=== PATIENT | male | born 1960 | race Caucasian/White ===

== ENCOUNTER 2022-09-09 08:51 | Day surgery (SDC) | payer OTHER, SELFPAY ==
--- NOTE | 2022-09-08 13:19 | HO.ANESPROP2 ---
Documented by User: Berta Iverson NP 09/08/22 13:19 HPI - Anesthesia Eval Consult details Narrative: 62yo M for Colonoscopy [facility] Past Medical History Medical History (Updated 09/08/22 @ 12:51 by Susan Castillo RN) Broken jaw Broken leg Surgical History Surgical History (Updated 09/08/22 @ 12:51 by Susan Castillo RN) H/O colonoscopy H/O hernia repair Social History Social History Patient Tobacco Use Status: Former Tobacco user Are you DNR?: No Advance Directives: No Advance Directives Information Provided: Yes Recently lost weight without trying: No Nutrition Risks: No Nutritional Risk Meds Allergies Allergy/AdvReac Type Severity Reaction Status Date / Time No Known Allergies Allergy Verified 09/08/22 12:49 Home Medications Medication Instructions Recorded Confirmed Last Taken Type multivitamin 1 tab PO DAILY 09/09/22 09/09/22 09/09/22 History Exam Exam Date and Time: September 08, 2022 131 Assessment and Plan Assessment Anesthesia Assessment: Chart Reviewed Documented by User: Yang Cortez MD 09/12/22 14:26 [facility] Past Medical History Medical History (Updated 09/08/22 @ 12:51 by Susan Castillo RN) Broken jaw Broken leg Functional capacity: independent ambulation Family History Family history of problems with anesthesia: No Surgical History Surgical History (Updated 09/08/22 @ 12:51 by Susan Castillo RN) H/O colonoscopy H/O hernia repair History of Problems with Anesthesia: No Social History Social History Patient Tobacco Use Status: Former Tobacco user Are you DNR?: No Advance Directives: No Advance Directives Information Provided: Yes Recently lost weight without trying: No Nutrition Risks: No Nutritional Risk Meds Allergies Allergy/AdvReac Type Severity Reaction Status Date / Time No Known Allergies Allergy Verified 09/08/22 12:49 Home Medications Medication Instructions Recorded Confirmed Last Taken Type multivitamin 1 tab PO DAILY 09/09/22 09/09/22 09/09/22 History Exam Airway Mallampati Class: III TM Dist: >3cm Neck ROM: Full Loose/Missing/Broken Teeth: Yes Heart: S1,S2 Lungs: b/l breath sounds Assessment and Plan Assessment Anesthesia Assessment: Anesthesia Plan Discussed Final Anesthetic Review Family History of Problems with Anesthesia: No History of Problems with Anesthesia: No NPO: Yes ASA Class: II Final Preanesthetic Review: Meds/Allgs Chart Reviewed, Consent Obtained/Reviewed and Anes Risks/Benef Reviewed Patient Risk: Intermediate Procedure Risk: Intermediate Anesthetic Plan Anesthetic Plan: MAC: Disposition: Standard PACU
[2022-09-09 07:52] VITALS: BMI 23.3
[2022-09-09 08:53] VITALS: BP 148/74; PULSE 62; RESP 18; TEMP 36.1; O2SAT 98
[2022-09-09] MEDS: Lactated Ringers 1,000 ML 100 ML IVCONT (09:17)
--- NOTE | 2022-09-09 11:04 | PM.OP ---
Brief Operative Note Date of Service: 09/09/22 Pre-op diagnosis: Screening Post-op diagnosis: other (Polyp) Procedure: Colonoscopy to the cecum and TI with bx/removal of polyp Surgeon: Steven Tong Anesthesia: MAC Was an Heel Sprayer First used for this Procedure?: No Estimated blood loss (mL): 2.0 Pathology: other (A. Polyp at 50cm) Condition: stable Disposition: PACU
[2022-09-09 11:05] VITALS: BP 98/62; PULSE 76; RESP 20; TEMP 36.4; O2SAT 97
[2022-09-09 11:20] VITALS: BP 104/72; PULSE 52; RESP 16; TEMP 36.3; O2SAT 98
--- NOTE | 2022-09-09 12:00 | OP_ITS ---
SURGEON: Steven Tong MD INDICATIONS: The patient presents for evaluation of colorectal cancer screening and personal history of tubular adenoma of the colon. Full consent has been obtained from him for this, including risks of bleeding and perforation. PREOPERATIVE DIAGNOSIS: Colorectal cancer screening. POSTOPERATIVE DIAGNOSIS: PROCEDURE PERFORMED: Colonoscopy to the cecum and terminal ileum with biopsy and removal of polyp. ESTIMATED BLOOD LOSS: COMPLICATIONS: ANESTHESIA: Monitored anesthesia care. ASSISTANTS: SPECIMENS: POSTOPERATIVE DIAGNOSES: Colorectal cancer screening, small colon polyp, mild diverticulosis and small internal hemorrhoids. DESCRIPTION OF PROCEDURE: The patient was placed in the left lateral decubitus position. The digital rectal exam revealed no abnormalities. The Olympus video pediatric colonoscope was then entered into the rectum and advanced to the cecum. Once in the cecum, I did identify normal-appearing cecal pouch with appendiceal orifice and normal-appearing ileocecal valve. The terminal ileum was cannulated and appeared normal. The scope was withdrawn back in the colon. The entire cecum and the ileocecal valve appeared normal. The scope was then slowly withdrawn assessing all mucosal surfaces carefully. Preparation was excellent. At 50 cm, there was a flat approximately 3 or 4 mm polyp which was biopsied and completely removed with a cold biopsy forceps. I did not visualize any other polyps, colitis nor angiodysplasia. There was a mild amount of sigmoid diverticulosis. In the rectum, the scope was retroflexed visualizing small internal hemorrhoids, but no other pathology. The rectal mucosa appeared normal. The scope was straightened and withdrawn from the patient. He tolerated the procedure well and was returned to the recovery area in stable condition. IMPRESSION: 1. Small colon polyp. 2. Diverticulosis. 3. Internal hemorrhoids. PLAN: The results of the biopsy will be checked. Given these minimal findings and a negative colonoscopy in 2017, I would recommend a repeat colonoscopy in 7 years for further screening and surveillance. He will otherwise see me on a p.r.n. basis. This has been discussed with his . MD ANN Russ/JUAN C / [id number] MTDZiyad
== END 2022-09-09 11:55 | disposition home or self-care (01) ==
PROVIDERS: PCP Family Medicine; Visit Provider Internal Medicine
PROC: 0DJD8ZZ Inspection of Lower Intestinal Tract, Via Natural or Artificial Opening Endoscopic (ICD-10-PCS; CPT 45378; principal; 2022-09-09 10:00)
DX: Z12.11 Encounter for screening for malignant neoplasm of colon (principal); Z86.010 Personal history of colon polyps; D12.5 Benign neoplasm of sigmoid colon; K57.30 Diverticulosis of large intestine without perforation or abscess without bleeding; K64.8 Other hemorrhoids; Z87.81 Personal history of (healed) traumatic fracture; Z87.891 Personal history of nicotine dependence
CPT/HCPCS: 45380; 88305

== ENCOUNTER 2022-10-11 13:44 | Inpatient (IN) | payer OTHER, SELFPAY ==
--- NOTE | ~2022-10-11 | XR_ITS ---
EXAMINATION: XR CHEST CLINICAL INFORMATION: Pneumonia. COMPARISON: None available. TECHNIQUE: 2 views of the chest were obtained. FINDINGS: The lungs are well-expanded with patchy consolidation right lower lobe and lateral segment right middle lobe. Some is is opacity seen right upper lobe. The left lung is expanded and clear. The heart size and pulmonary vascularity is normal. No gross bony abnormality seen. XR/XR chest 2V IMPRESSION: Patchy consolidation right lower lobe and lateral segment right middle lobe. There is minimal opacity right upper lobe.
[2022-10-11 13:59] VITALS: BP 119/72; BP 140/78; PULSE 89; PULSE 97; RESP 18; TEMP 36.8; O2SAT 93; O2SAT 94; BMI 23.5
--- NOTE | 2022-10-11 14:07 | PC.NURSE ---
pt AOx3, reporting cough and SOB since monday. Pt comes from urgent care with pnu diagnosis. (disc of Xray to PA). Pt reports decreases PO intake over the past few days. Right side crackles notes in lung base. Pt afebrile but reports fever in the past 48 hours of 100.
--- NOTE | 2022-10-11 14:09 | ED.GENADULT ---
HPI - General Adult General Chief complaint: General Medical Stated complaint: SOB, 93% RA, PNA PER XRAY FROM [facility] Time Seen by Provider: 10/11/22 13:58 Source: patient, EMS, RN notes reviewed and old records reviewed Mode of arrival: EMS History of Present Illness HPI narrative: 62-year-old male with no significant PMHx presents to the ED from [facility] c/o SOB, chills, fever (Tmas 102.8) & right-sided chest wall pain worse when coughing x4-5 days. Was seen at [facility] and Dx with PNA, sent to the ED for further eval. Per EMS patient satting 93% on RA. Patient reports taking Tylenol with relief. Denies headache, dizziness, lightheadedness, nausea, vomiting, change in vision, sore throat, chest pain, abdominal pain, LE edema, hx clots, smoking. Onset (ago): day(s) Location: chest Quality: sharp Exacerbating factors: movement Related Data Home Medications Medication Instructions Recorded Confirmed multivitamin 1 tab PO DAILY 09/09/22 09/09/22 Allergies Allergy/AdvReac Type Severity Reaction Status Date / Time No Known Allergies Allergy Verified 09/08/22 12:49 Review of Systems Review of Systems: Constitutional: + Fever, + Chills, No Night Sweats, No Fatigue, No Malaise ENT/Mouth: No Nasal Congestion, No sore throat, No Rhinorrhea, No Swallowing Difficulty Eyes: No Eye Pain, No Swelling, No Redness Cardiovascular: + Chest Wall Pain, + SOB, No Dyspnea on Exertion, No Orthopnea, No Edema, No Palpitations Respiratory: + Cough, No Sputum, No Wheezing, No Dyspnea Gastrointestinal: No Nausea, No Vomiting, No Diarrhea, No Constipation, No Abdominal pain Genitourinary: No Urinary Frequency, No Hematuria, No Urinary Incontinence/retention Musculoskeletal: No joint pain, + Myalgias, No Joint Swelling Skin: No Skin Lesions, No rash Neuro: No Weakness, No Numbness, No Paresthesias, No Dizziness, No Headache Yes all other systems are reviewed and are negative Constitutional: Constitutional: Reports as per HPI [facility] Past Medical History Attestation statement: The following information was validated with the patient. Medical History Broken jaw Broken leg Surgical History H/O colonoscopy H/O hernia repair Social History Social History Alcohol intake: current Alcohol intake frequency: 0-2 drinks per day Alcohol type: beer Patient Tobacco Use Status: Former Tobacco user Smoked in Last 30 Days: No Use of substances other than those prescribed or required for medical reasons: No Advance Directives: No Advance Directives Information Provided: Yes Physical Exam ED Vital Signs: Vital Signs - 24 hr 10/11/22 13:59 Temperature 98.2 F Pulse Rate 89 Respiratory Rate 18 Blood Pressure 119/72 Pulse Oximetry 94 Oxygen Delivery Method Room Air BMI result Body Mass Index 23.5 Const General: cooperative, healthy appearing, no acute distress, alert and awake Nutritional Appearance: average body habitus Orientation/consciousness: patient oriented x3 Limitations: no limitations HENMT Head: Yes normal to inspection and Yes atraumatic Ears: hearing grossly normal bilaterally General nose exam: Normal external nose present Face and sinus: Yes normal facial exam Eyes General: appearance normal, both eyes and all related structures EOM: EOMs intact bilaterally Neck Neck: Yes normal visual inspection, Yes full ROM and Yes no meningeal signs Resp Effort & Inspection: normal respiratory effort, able to speak in complete sentences and no respiratory distress Auscultation: crackles on the right in the lower lung garsia and no wheezes Cardio Rate: regular rate Rhythm: regular rhythm Heart sounds: S1 normal heart sound present and S2 normal heart sound present GI Other: Reducible umbilical hernia noted, nontender Inspection: Yes normal to inspection Palpation (GI): Soft to palpation, nontender, no guarding and not rigid Skin Rashes: no rashes Wounds: no wounds Neuro General: patient oriented x3, tone normal, no meningeal signs, no focal motor deficits and CN's II-XI intact bilaterally Cranial nerves: Yes CN's II-XII intact bilaterally Cognition (Neuro): normal cognition Gait exam (Neuro): Normal gait present Motor exam (neuro): 5/5 motor strength present throughout Extrem General: Yes normal to inspection, Yes full ROM, Yes no pedal edema and Yes no calf tenderness Course Course Course Narrative: -1529--BUN elevated to 23. T bili and D bili mildly elevated > abdomen is soft and nontender. Troponin negative -leukocytosis of 21.1 -1556--CXR with large right-sided pneumonia. > Plan to admit for further management Medications Administered Generic Name Dose Route Start Last Admin Trade Name Freq PRN Reason Stop Dose Admin Sodium Chloride 1,000 mls @ 999 mls/hr 10/11/22 15:30 10/11/22 15:47 Ns IV 10/11/22 16:30 999 mls/hr .Q1H1M ARIELA Administration Discontinued Medications Generic Name Dose Route Start Last Admin Trade Name Freq PRN Reason Stop Dose Admin Ceftriaxone Sodium 1 gm/ 50 mls @ 100 mls/hr 10/11/22 14:23 10/11/22 15:46 Sodium Chloride IV 10/11/22 14:52 Infused ONCE ONE Infusion Medical Decision Making Medical Decision Making [facility] Narrative: 62-year-old male with no significant PMHx [facility] c/o SOB, chills, fever (Tmas 102.8) & right-sided chest wall pain worse when coughing x4-5 days. Was seen at [facility] and Dx with PNA, sent to the ED for further eval. On exam vital signs stable, satting 94% on RA in no respiratory distress, RLE crackles noted, talking in complete sentences, no pedal edema. Concern for pneumonia. Low concern for ACS/PE, ACS, pleural effusion, or CHF. No suspicion for severe sepsis at this time Plan: EKG, labs, CXR, lactic/blood cultures, empiric IV Rocephin Please refer to course for remaining clinical decision making, interpretation of labs/imaging results, and discussions with consultants and/or family members. Differential Diagnosis Differential Diagnoses: The differential diagnosis associated with the presentation includes As above Admission/Observation Consideration of admission/observation: Escalation of care including admission/observation considered Lab Data [facility] Lab Attestation statement: I reviewed the patient's lab results. 10/11/22 14:49 10/11/22 14:49 Labs: Lab Results 10/11/22 10/11/22 10/11/22 Range/Units 14:49 14:49 14:49 WBC 21.1 H (4.8-10.8) X10*3/uL RBC 4.84 (4.60-5.80) X10*6/uL Hgb 14.4 (14.0-18.0) g/dl Hct 41.7 L (42.0-52.0) % MCV 86.2 (80.0-98.0) fL MCH 29.8 (27.0-33.0) pg MCHC 34.5 (31.0-36.0) g/dl RDW 13.2 (11.0-16.0) % Plt Count 187 (160-400) X10*3/uL MPV 9.4 (9.4-12.4) fL Immature Gran % (Auto) Cancelled Neut % (Auto) Cancelled Lymph % (Auto) Cancelled [place] % (Auto) Cancelled Eos % (Auto) Cancelled Baso % (Auto) Cancelled Lymph # (Auto) Cancelled [place] # (Auto) Cancelled Eos # (Auto) Cancelled Baso # (Auto) Cancelled Abs Immat Gran (auto) Cancelled Absolute Neuts (auto) Cancelled Absolute Nucleated RBC 0.000 (0.0-0.012) X10*3/uL Nucleated RBC % (auto) 0.0 (0.0-0.2) /100WBC Sodium 139 (135-145) mmol/L Potassium 3.5 (3.3-5.1) mmol/L Chloride 100 (96-108) mmol/L Carbon Dioxide 27 (22-29) mmol/L Anion Gap 16 (12-20) BUN 23 H (9-16) mg/dL Creatinine 1.06 (0.5-1.4) mg/dL Estim Creat Clear Calc 77.2 Estimated GFR > 60 Random Glucose 122 H (60-115) mg/dL Lactic Acid 2.0 (0.5-2.0) mmol/L Calcium 8.5 (8.4-10.2) mg/dL Magnesium 2.1 (1.6-2.6) mg/dL Total Bilirubin 2.9 H (0.0-1.0) mg/dL Direct Bilirubin 1.9 H (0.0-0.5) mg/dL AST 37 (5-37) U/L ALT 65 H (0-40) U/L Alkaline Phosphatase 239 H (39-117) U/L Troponin I High Sens (<3.5-35.0) ng/L B-Natriuretic Peptide (<100) pg/mL Total Protein 5.9 L (6.5-8.0) g/dL Albumin 3.1 L (3.5-5.0) g/dL Influenza Type A (PCR) (Negative) Influenza Type B (PCR) (Negative) RSV RNA Qual (PCR) (Negative) SARS-CoV-2 RNA (RT-PCR) (Negative) 10/11/22 10/11/22 10/11/22 Range/Units 14:49 14:49 14:49 WBC (4.8-10.8) X10*3/uL RBC (4.60-5.80) X10*6/uL Hgb (14.0-18.0) g/dl Hct (42.0-52.0) % MCV (80.0-98.0) fL MCH (27.0-33.0) pg MCHC (31.0-36.0) g/dl RDW (11.0-16.0) % Plt Count (160-400) X10*3/uL MPV (9.4-12.4) fL Immature Gran % (Auto) Neut % (Auto) Lymph % (Auto) [place] % (Auto) Eos % (Auto) Baso % (Auto) Lymph # (Auto) [place] # (Auto) Eos # (Auto) Baso # (Auto) Abs Immat Gran (auto) Absolute Neuts (auto) Absolute Nucleated RBC (0.0-0.012) X10*3/uL Nucleated RBC % (auto) (0.0-0.2) /100WBC Sodium (135-145) mmol/L Potassium (3.3-5.1) mmol/L Chloride (96-108) mmol/L Carbon Dioxide (22-29) mmol/L Anion Gap (12-20) BUN (9-16) mg/dL Creatinine (0.5-1.4) mg/dL Estim Creat Clear Calc Estimated GFR Random Glucose (60-115) mg/dL Lactic Acid (0.5-2.0) mmol/L Calcium (8.4-10.2) mg/dL Magnesium (1.6-2.6) mg/dL Total Bilirubin (0.0-1.0) mg/dL Direct Bilirubin (0.0-0.5) mg/dL AST (5-37) U/L ALT (0-40) U/L Alkaline Phosphatase (39-117) U/L Troponin I High Sens < 2.7 (<3.5-35.0) ng/L B-Natriuretic Peptide 53 (<100) pg/mL Total Protein (6.5-8.0) g/dL Albumin (3.5-5.0) g/dL Influenza Type A (PCR) NEGATIVE (Negative) Influenza Type B (PCR) NEGATIVE (Negative) RSV RNA Qual (PCR) NEGATIVE (Negative) SARS-CoV-2 RNA (RT-PCR) NEGATIVE (Negative) Radiology Impression Discussion of test interpretation with radiology: I have reviewed the radiologist's reading. External Record Review External record reviewed: Inpatient record, Office record, Outpatient record, Prior outpatient labs, Prior outpatient radiology, Primary care record and Outside ED record Critical Care Time Critical Care Time Critical Care Time: Yes Total Critical Care Time: 40 Attestation: I have personally provided critical care time exclusive of time spent on separately billable procedures. Time includes review of lab data, radiology results, discussion with consultants, and monitoring for potential decompensation. Intervention performed as documented. Discharge Plan Discharge Clinical Impression: Pneumonia Patient Disposition: Admitted As Inpatient
--- NOTE | 2022-10-11 14:20 | ECG_ITS ---
Test Reason : sob Blood Pressure : / mmHG Vent. Rate : 087 BPM Atrial Rate : 087 BPM P-R Int : 138 ms QRS Dur : 092 ms QT Int : 362 ms P-R-T Axes : 070 -07 034 degrees QTc Int : 435 ms Normal sinus rhythm Possible Left atrial enlargement Borderline ECG No previous ECGs available Referred By: Ira Nolan Electronically Signed By:LOUIE MCKINLEY
--- OUTSIDE RECORDS SUMMARY | 2022-10-11 14:21 | XMS_ITS | Continuity of Care Document ---
Author Name Unknown Organization [facility] Address [address] [place] [address] [address] [place] [address]- Care Team Providers Care Anesthesiologist Name Role Phone Jose Purdy MD Primary Care Physician Encounter [facility] Date(s): 09/22/22 - 09/29/[address] [place] [address]- Attending Physician: [place] MD Referring Physician: Jose Purdy MD Allergies, Adverse Reactions, Alerts No Known Allergies Immunizations Given and Recorded Vaccine Date Status Refusal Reason influenza virus vaccine, inactivated 05/04/21 Chuck rded influenza virus vaccine, inactivated 04/07/17 Chuck rded SARS-CoV-2 (COVID-19) mRNA-1273 vaccine 03/14/21 R ecorded SARS-CoV-2 (COVID-19) mRNA-1273 vaccine 02/11/21 R ecorded Medications Multivitamin Daily, 0 Refills, Maintenance, 07/27/22 15:30:00 EST, Partial fill upon patient request if the prescription is for a schedule II opioid drug. Start Date: 07/27/22 Status: Ordered Problem List Condition Confirmation Course Effective Dates Status H ealth Status Informant Alcohol use Confirmed Active Elevated blood pressure reading Confirmed Active Angiokeratoma of scrotum Confirmed Active Preventative health care Confirmed Active Screening for diabetes mellitus Confirmed Active Screening for lipid disorders Confirmed Active Screening for prostate cancer Confirmed Active Elevated PSA Confirmed Active Umbilical hernia Confirmed Active Procedures Procedure Date Related Diagnosis Body Site Status Repair of left inguinal hernia Completed Repair of right inguinal hernia Completed Vital Signs Most recent to oldest [Reference Range]: 1 Height 184 cm (09/22/22 1:44 PM) Weight 77.9 kg (09/22/22 1:44 PM) Pulse Rate [55-90 bpm] 58 bpm (09/22/22 1:44 PM) Body Mass Index [18.5-24.99 kg/m2] 23.01 kg/m2 (09/22/22 1:44 PM) Blood Pressure [90-138/55-84 mm Hg] 140/ 82mm Hg *H* (09/22/22 1:44 PM) Respiratory Rate [16-30 br/min] 18 br/mi n (09/22/22 1:44 PM) Temperature [96.8-100.4 DegF] 98.0 DegF (09/22/22 1:44 PM) Blood pressure sites Arm, right (09/22/22 1:44 PM) Temperature Route Temporal (09/22/22 1:44 PM) Weight Obtained Via Standing scale (09/22/22 1:44 PM) Social History Social History Type Response Smoking Status Never (less than 100 in lifetime) entered on: 07/27/22 Sex Patient Care team information Care Team Personnel Name: Rajwinder CAT, Jose Soni Position: S Primary Care Physician Member Role: PCP Address: Address: [address] [place] [address] [place] [address]- Care Team Related Persons Name: IDANIA ORTEZ Address: [address] [place] [address]
--- OUTSIDE RECORDS SUMMARY | 2022-10-11 14:21 | XMS_ITS ---
Author Name Steven Tong Address [address] [place] [address] [facility] Address [address] [place] [address] Care Team Providers Care Guest Services Attendant Name Role Phone Alycia Steven Unavailable [phone] PROBLEMS Type Condition ICD9-CM Code ACV58-MG Code Onset Dates Condition Status SNOMED Code Problem History of adenomatous polyp of colon Z86.010 Active 477295880 Problem Diverticulosis of large intestine without perforation or abscess without bleeding K57.30 Active 289573735 Problem Preprocedural examination Z01.818 Active [id number] Problem Encounter for screening for malignant neoplasm of colon Z12.11 Active [id number] ALLERGIES No Known Allergies ENCOUNTERS Encounter Location Date Diagnosis [facility] Outpatient [address] [place], [place] [phone] Aug, Encounter for screening colonoscopy Z12.11 ; Colon polyp K63.5 ; Other hemorrhoids K64.8 and Diverticulosis of large intestine without perforation or abscess without bleeding K57.30 [facility] [address] [facility] [address] [place] [id number] Jun, History of adenomatous polyp of colon Z86.010 ; Preprocedural examination Z01.818 and Encounter for screening for malignant neoplasm of colon Z12.11 [facility] Outpatient [address] [place], [place] [phone] Feb, [facility] [address] [facility] [address] [place] [phone] October, Preprocedural examination Z01.818 ; Encounter for screening for malignant neoplasm of colon Z12.11 and History of adenomatous polyp of colon Z86.010 [facility] [address] [place] [address] Jun, [facility] Outpatient [address] [place], [place] [phone] Jun, [facility] [address] [place] [address] May, Special screening for malignant neoplasms, colon V76.51 IMMUNIZATIONS Vaccine Route Administration Date Status Influenza Unknown Feb 24, 2022 Administered SOCIAL HISTORY Never Assessed REASON FOR REFERRAL FUNCTIONAL STATUS PLAN OF CARE Activity Details VITAL SIGNS Weight 170 lbs 2022-07-13 Weight 172 lbs 2016-11-16 Weight 174 lbs 2011-06-08 Height 71.5 in 2022-07-13 Height 71.5 in 2016-11-16 Height 71.5 in 2011-06-08 BMI 23.38 kg/m2 2022-07-13 BMI 23.65 kg/m2 2016-11-16 BMI 23.93 kg/m2 2011-06-08 Heart Rate 68 /min 2016-11-16 Heart Rate 64 /min 2011-06-08 Temperature 97.1 degrees Fahrenheit Blood pressure systolic 000 mm Hg Blood pressure diastolic 00 mm Hg 2022-06 MEDICATIONS Medication Instructions Dosage Frequency Start Date End Date Du ration Status Multi Vitamin/Minerals Act dinora PROCEDURES Procedure Date Ordered Result Body Site BP SCR NOT PRFRM REC REASON NOS Jul 13, 2022 TOBACCO NON-USER Jul 13, 2022 DOC MEDS VERIFIED W/PT OR RE Jul 13, 2022 COLORECTAL CA SCREEN DOC REV Jul 13, 2022 COLONOSCOPY AND BIOPSY September 09, 2022 RESULTS Name Result Date Reference Range GI BIOPSY 2011-07-20 G.I. BIOPSY REASON FOR VISIT hx polyps,screening, Patient presents today for a recall colonoscopy, SCREENING, patient presents today for pre-colon, WOULD LIKE RESULTS, colorectal cancer screening Insurance Providers Health Insurance Type Health Plan Insurance Address Health Plan Insurance Phone Health Plan Insurance Name Health Plan Coverage Dates Member ID Patient Relationship to Subscriber Patient Address Patient Phone Patient Name Patient Date of Subscriber ID Subscriber Name Subscriber Date of [facility] [address] [place] [address] [phone] [employer] self KRISTINE KWAN [id number]
[2022-10-11] MEDS: cefTRIAXone sodium 1 GM in 0.9 % Sodium Chloride 50 ML IV (14:56)
[2022-10-11 15:13] LABS: Hematocrit 41.7 % (42.0-52.0); Hemoglobin 14.4 g/dl (14.0-18.0); Mean Corpuscular HGB Conc 34.5 g/dl (31.0-36.0); Mean Corpuscular Hemoglobin 29.8 pg (27.0-33.0); Mean Corpuscular Volume 86.2 fL (80.0-98.0); Mean Platelet Volume 9.4 fL (9.4-12.4); Platelet Count 187 X10*3/uL (160-400); Red Blood Count 4.84 X10*6/uL (4.60-5.80); Red Cell Distribution Width 13.2 % (11.0-16.0)
[2022-10-11 15:21] LABS: Alanine Aminotransferase 65 U/L (0-40); Albumin Level 3.1 g/dL (3.5-5.0); Alkaline Phosphatase 239 U/L (39-117); Anion Gap 16 (12-20); Aspartate Amino Transferase 37 U/L (5-37); Bilirubin Direct 1.9 mg/dL (0.0-0.5); Bilirubin Total 2.9 mg/dL (0.0-1.0); Blood Urea Nitrogen 23 mg/dL (9-16); Calcium 8.5 mg/dL (8.4-10.2); Carbon Dioxide 27 mmol/L (22-29); Chloride 100 mmol/L (96-108); Creatinine Clr Calc Pharmacy 77.2; Estimated Glomerular Filt Rate > 60; Glucose Random 122 mg/dL (60-115); Magnesium 2.1 mg/dL (1.6-2.6); Potassium 3.5 mmol/L (3.3-5.1); Sodium 139 mmol/L (135-145); Total Protein 5.9 g/dL (6.5-8.0); Troponin-I High Sensitivity < 2.7 ng/L (<3.5-35.0)
[2022-10-11 15:26] LABS: B Type Natriuretic Peptide 53 pg/mL (<100)
[2022-10-11] MEDS: 0.9 % Sodium Chloride 1,000 ML 999 ML IV (15:47)
[2022-10-11 15:48] LABS: Influenza A PCR NEGATIVE (Negative); Influenza B PCR NEGATIVE (Negative); Resp Syncy Virus RNA Qual PCR NEGATIVE (Negative); SARS COV2 PCR INHOUSE NEGATIVE (Negative)
[2022-10-11 15:53] LABS: WBC ABN SCTR FOR CBC 1; White Blood Count 21.1 X10*3/uL (4.8-10.8)
[2022-10-11 16:10] LABS: Atypical Lymph Absolute Manual 0.2 x10*3/uL; Atypical Lymphs Percent Manual 1 % (0-6); Lymphocytes Absolute Manual 0.4 X10*3/uL (1.2-4.9); Lymphocytes Percent Manual 2 % (20-40); Metamyelocytes Absolute 0.2 X10*3/uL; Metamyelocytes Percent 1 %; Monocytes Absolute Manual 1.1 X10*3/uL (0.1-1.2); Monocytes Percent Manual 5 % (2-11); Neutrophils Absolute Manual 19.2 X10*3/uL (2.0-8.3); Neutrophils Percent Manual 80 % (45-73)
[2022-10-11 16:12] LABS: Band Neutrophils Percent 11 % (3-5)
[2022-10-11 16:13] LABS: Microcytosis 1+ (5-14) /OIF; RBC Morphology NOTED
[2022-10-11 16:14] LABS: Burr Cells 2+ (3-5) /OIF; Large Platelet PRESENT; Platelet Estimate NORMAL (NORMAL); Platelet Morphology Comment NOTED; Tear Drop Cells 2+ (3-5) /OIF
[2022-10-11 16:15] LABS: Dohle Bodies PRESENT; Toxic Granulation PRESENT; Toxic Vacuolation PRESENT; WBC Morphology Comment DYSMORPHIC
--- NOTE | 2022-10-11 16:23 | P.HPHOSP_ITS ---
History of Present Illness Date of Service: 10/11/22 Chief Complaint: Shortness of Breath 62 year old male with no snficiant PMHx ricardo with cough, shortness, fever and right sided pleurisy. He symptoms started started nearly 5 days ago with fever and chills, he recored fever of up 102 and has been taking tylenol for the pain but the non-productive cough and shortness has persisted, he has been able to sleep. He called PCP but could not get a visit and therefore went to an urgent care where he was diagnosed with pneumnia and refered to the ED. Work releaved stable vitals, no fever, WBC is 21K. Flu/RSV/Sars-cov 19 negative. Started on Ceftriaxone and Azithromycin Review of Systems Review of Systems: Gen: + fever at home Resp: + sob, + cough CV: right sided chest pain, no RUBY, no leg edema GI: No n/v, no abd pain Neuro: No confusion Yes all other systems are reviewed and are negative [facility] Medical History Broken jaw Broken leg Surgical History H/O colonoscopy H/O hernia repair Social History Alcohol intake: current Alcohol intake frequency: 0-2 drinks per day Alcohol type: beer Patient Tobacco Use Status: Former Tobacco user Smoked in Last 30 Days: No Use of substances other than those prescribed or required for medical reasons: No Advance Directives: No Advance Directives Information Provided: Yes Meds Allergies Allergy/AdvReac Type Severity Reaction Status Date / Time No Known Allergies Allergy Verified 09/08/22 12:49 Active Medications: Current Medications Sodium Chloride (Ns) 1,000 mls @ 999 mls/hr IV .Q1H1M ARIELA Stop: 10/11/22 16:30 Last Admin: 10/11/22 15:47 Dose: 999 mls/hr Azithromycin 500 mg/ Sodium (Chloride) 250 mls @ 125 mls/hr IV ONCE ONE Stop: 10/11/22 17:59 Pharmacy Consult (Consult Rx Perform Med Rec) 1 each MISCELLANE ONCE STA Stop: 10/11/22 16:14 Home Medications Medication Instructions Recorded Confirmed Last Taken Type multivitamin 1 tab PO DAILY 09/09/22 10/11/22 10/07/22 History cholecalciferol (vitamin D3) 25 25 mcg PO DAILY 10/11/22 10/11/22 10/07/22 History mcg (1,000 unit) tablet Physical Exam Vital Signs and Narrative: Vital Signs: Last Vital Signs Temp 98.2 F 10/11/22 13:59 Pulse 89 10/11/22 13:59 Resp 18 10/11/22 13:59 BP 119/72 10/11/22 13:59 Pulse Ox 94 10/11/22 13:59 O2 Del Method Room Air 10/11/22 13:59 BMI result Body Mass Index 23.5 Const: Other: Constitutional: Alert, in no distress, overweight. Mental Status: Oriented to person, place and time. Eyes: Pupils are equal, round and reactive to light. Ear, Nose and Throat: Oropharynx clear, mucous membranes moist. Ears and nose without eformities. Trachea midline. Respiratory: rales at right base Cardiovascular: S1 S2 regular. No murmurs, rubs or gallops. Gastrointestinal: Abdomen soft, non-tender, non-distended. Normal bowel sounds.? Neurologic: Cranial nerves II-XII grossly intact. No focal neurological deficits. Moves all extremities spontaneously.? Skin: No rashes or lesions.? Musculoskeletal: No cyanosis or clubbing. Psychiatric: Normal mood and affect? Results Labs 10/11/22 14:49 10/11/22 14:49 Labs: Laboratory Results - last 24 hr 10/11/22 10/11/22 10/11/22 14:49 14:49 14:49 MCV 86.2 MCH 29.8 MCHC 34.5 RDW 13.2 Plt Count 187 MPV 9.4 Immature Gran % (Auto) Cancelled Neut % (Auto) Cancelled Lymph % (Auto) Cancelled [place] % (Auto) Cancelled Eos % (Auto) Cancelled Baso % (Auto) Cancelled Lymph # (Auto) Cancelled [place] # (Auto) Cancelled Eos # (Auto) Cancelled Baso # (Auto) Cancelled Abs Immat Gran (auto) Cancelled Absolute Neuts (auto) Cancelled Absolute Nucleated RBC 0.000 Nucleated RBC % (auto) 0.0 Neutrophils % (Manual) 80 H Band Neutrophils % 11 H Lymphocytes % (Manual) 2 L Atypical Lymphs % (Man) 1 Monocytes % (Manual) 5 Metamyelocytes % 1 Abs Neuts (Manual) 19.2 H Lymphocytes # (Manual) 0.4 L Atyp Lymphs # (Manual) 0.2 Monocytes # (Manual) 1.1 Metamyelocytes # 0.2 Toxic Granulation PRESENT Toxic Vacuolation PRESENT Dohle Bodies PRESENT WBC Morphology Comment DYSMORPHIC Platelet Estimate NORMAL Large Platelets PRESENT Plt Morphology Comment NOTED RBC Morphology NOTED Microcytosis 1+ (5-14) Tear Drop Cells 2+ (3-5) [place] Cells 2+ (3-5) Anion Gap 16 Estim Creat Clear Calc 77.2 Estimated GFR > 60 Random Glucose 122 H Lactic Acid 2.0 Calcium 8.5 Magnesium 2.1 Total Bilirubin 2.9 H Direct Bilirubin 1.9 H AST 37 ALT 65 H Alkaline Phosphatase 239 H Troponin I High Sens B-Natriuretic Peptide Total Protein 5.9 L Albumin 3.1 L Influenza Type A (PCR) Influenza Type B (PCR) RSV RNA Qual (PCR) SARS-CoV-2 RNA (RT-PCR) 10/11/22 10/11/22 10/11/22 14:49 14:49 14:49 MCV MCH MCHC RDW Plt Count MPV Immature Gran % (Auto) Neut % (Auto) Lymph % (Auto) [place] % (Auto) Eos % (Auto) Baso % (Auto) Lymph # (Auto) [place] # (Auto) Eos # (Auto) Baso # (Auto) Abs Immat Gran (auto) Absolute Neuts (auto) Absolute Nucleated RBC Nucleated RBC % (auto) Neutrophils % (Manual) Band Neutrophils % Lymphocytes % (Manual) Atypical Lymphs % (Man) Monocytes % (Manual) Metamyelocytes % Abs Neuts (Manual) Lymphocytes # (Manual) Atyp Lymphs # (Manual) Monocytes # (Manual) Metamyelocytes # Toxic Granulation Toxic Vacuolation Dohle Bodies WBC Morphology Comment Platelet Estimate Large Platelets Plt Morphology Comment RBC Morphology Microcytosis Tear Drop Cells [place] Cells Anion Gap Estim Creat Clear Calc Estimated GFR Random Glucose Lactic Acid Calcium Magnesium Total Bilirubin Direct Bilirubin AST ALT Alkaline Phosphatase Troponin I High Sens < 2.7 B-Natriuretic Peptide 53 Total Protein Albumin Influenza Type A (PCR) NEGATIVE Influenza Type B (PCR) NEGATIVE RSV RNA Qual (PCR) NEGATIVE SARS-CoV-2 RNA (RT-PCR) NEGATIVE Assessment and Plan (1) Pneumonia: Status: Acute (2) Severe sepsis: Status: Acute Plan 62 year old male with no chronic medical issues here with sob, cough, right pleurisy and right pneumonia, he meets severe sepsis criteria fever at home (treated with tylenol), elevated WBC and elevated Bilirubin Severe Sepsis due to Community Acquired Pneumonia (CAP) -Continue Ceftriaxone and Azithromycin Started 10/11 -Incentive spiormetry -Robitusin for cough -Urine Strep and legionella antigen Pleuritic chest pain d/t above Toraldol, and Tyelenol for pain Elevated LFTs (Transaminitis)--likely related to sepsis and is expected to improve -Follow LFTs, and not improve by tomorrow, check viral hep Lovenox for DVT prophylaxis Full code regular diet Admission to [facility] at least 2 midnights for treatment of Severe sepsis with IV Abx and monitoring for response Out of bed and amublate on unit Time Spent With Patient Time: Total time managing care of this patient today ____ minutes. Quality Stroke Does the patient have a stroke diagnosis?: No VTE Prior VTE?: No VTE Risk Level:: Medical - moderate - high VTE Device Contraindication: Treatment Not Indicated VTE Drug Contraindication: N/A - Med Ordered
[2022-10-11 16:28] VITALS: BP 111/66; PULSE 110; RESP 16; O2SAT 94
--- NOTE | 2022-10-11 16:33 | PHA.MEDREC ---
Pharmacy Consult ? Medication Reconciliation Pharmacy has completed the medication reconciliation. Pt states only takes multivitamin and vitamin d at home. No other maintenance meds. Says hasn't taken in about 4 to 5 days.
[2022-10-11] MEDS: Azithromycin 500 MG in 0.9 % Sodium Chloride 250 ML 125 MG IV (16:53)
--- NOTE | 2022-10-11 17:00 | PC.NURSE ---
antibiotics started. medicine infusing appropriately, pt tolerating well. his is at his bedside
--- NOTE | 2022-10-11 17:40 | PC.NURSE ---
per Dr. Banda, called pharmacy to change IM torodol to IV torodol.
[2022-10-11] MEDS: Enoxaparin Sodium 40 MG/0.4 ML SYRINGE SUBCUT (18:21)
[2022-10-11] MEDS: Ketorolac Tromethamine 15 MG/ML VIAL IVPUSH (18:23)
--- NOTE | 2022-10-11 18:28 | PC.NURSE ---
patient a&ox3, vss, pt medicated for 8/10 pain per order, pt also medicated with lovenox per order, lunchroom monitor intact- sinus on monitor, lungs have RLL crackles all other loves clear, call gillis within reach will continue to monitor.
--- NOTE | 2022-10-11 19:10 | PC.NURSE ---
attempted to call report, national secretary unable to locate staff
[2022-10-11] MEDS: Zolpidem Tartrate 5 MG TABLET PO (22:35)
[2022-10-11 23:47] VITALS: BP 110/61; PULSE 94; RESP 16; TEMP 38; O2SAT 93
[2022-10-12] MEDS: Acetaminophen 325 MG TABLET 650 MG PO (00:02)
[2022-10-12] MEDS: 0.9 % Sodium Chloride Flush 3 ML SYRINGE IVFLUSH ×4 (00:07→23:55)
[2022-10-12] MEDS: Ketorolac Tromethamine 15 MG/ML VIAL IVPUSH ×3 (00:07→19:39)
[2022-10-12 01:09] VITALS: TEMP 36.4
[2022-10-12 04:19] VITALS: BP 123/69; PULSE 73; RESP 16; TEMP 36.9; O2SAT 95
[2022-10-12 06:29] LABS: Hematocrit 37.2 % (42.0-52.0); Hemoglobin 12.9 g/dl (14.0-18.0); Mean Corpuscular HGB Conc 34.7 g/dl (31.0-36.0); Mean Corpuscular Hemoglobin 29.6 pg (27.0-33.0); Mean Corpuscular Volume 85.3 fL (80.0-98.0); Mean Platelet Volume 9.3 fL (9.4-12.4); Platelet Count 180 X10*3/uL (160-400); Red Blood Count 4.36 X10*6/uL (4.60-5.80); White Blood Count 22.1 X10*3/uL (4.8-10.8)
[2022-10-12 06:50] LABS: Alanine Aminotransferase 47 U/L (0-40); Albumin Level 2.3 g/dL (3.5-5.0); Alkaline Phosphatase 198 U/L (39-117); Anion Gap 11 (12-20); Aspartate Amino Transferase 27 U/L (5-37); Bilirubin Direct 1.6 mg/dL (0.0-0.5); Bilirubin Total 2.3 mg/dL (0.0-1.0); Blood Urea Nitrogen 26 mg/dL (9-16); Calcium 7.9 mg/dL (8.4-10.2); Carbon Dioxide 25 mmol/L (22-29); Chloride 104 mmol/L (96-108); Estimated Glomerular Filt Rate > 60; Glucose Random 97 mg/dL (60-115); Potassium 3.2 mmol/L (3.3-5.1); Sodium 137 mmol/L (135-145); Total Protein 4.6 g/dL (6.5-8.0)
[2022-10-12 07:25] VITALS: BP 133/72; PULSE 78; RESP 20; TEMP 36.6; O2SAT 94
[2022-10-12 09:19] LABS: Magnesium 2.3 mg/dL (1.6-2.6)
--- NOTE | 2022-10-12 09:46 | MHC.CM.PN ---
PATIENT LIVES WITH /HCP (IDANIA) COPY REQUESTED. IDANIA STATES THAT COPY IS WITH PCP. NO DME OR VNA SERVICES. PLAN IS AWAITING CULTURES AND LIKELY DC HOME - SELF CARE AT THAT POINT
[2022-10-12 09:55] LABS: HBc Num1 0.09 S/CO (0.00-0.79); HBsAGNum1 0.52 S/CO (0.00-0.99); Hepatitis A Antibody IgM 0.16 Index (0-0.79); Hepatitis B Core Antibody Nonreactive (Nonreactive); Hepatitis B Surface Antigen Negative (Negative); ~HepC Num1 0.09 S/CO (0.00-0.79); ~Hepatitis A Antibody IgM Nonreactive (Nonreactive); ~Hepatitis B Surface Antibody NONREACTIVE (Nonreactive); ~Hepatitis C Antibody Nonreactive (Nonreactive)
[2022-10-12] MEDS: Multivitamin TABLET 1 TAB PO (10:17)
[2022-10-12] MEDS: Cholecalciferol (Vitamin D3) 25 MCG TABLET PO (10:17)
[2022-10-12] MEDS: Potassium Chloride Packet 20 MEQ PACKET 40 MEQ PO (10:18)
--- NOTE | 2022-10-12 15:31 | HO.PM.IMPN ---
Subjective Subjective Date of Service: 10/12/22 Interval History: Severe Sepsis due to Community Acquired Pneumonia Review of Systems Patient is still shortness of breath similar to yesterday and has cough , generalized weak. No fevers Physical Exam Vital Signs: Vital Signs: Last Vital Signs Temp 97.8 F 10/12/22 07:25 Pulse 78 10/12/22 07:25 Resp 20 10/12/22 07:25 BP 133/72 10/12/22 07:25 Pulse Ox 94 10/12/22 07:25 O2 Del Method Room Air 10/12/22 07:25 BMI result Body Mass Index 23.5 Appearance: Alert.? Oriented X3.? sob. cvs: [id number], [id number]. res: air entry diminshed ,right sided base -few cracles , no wheezin abd: no rebound or guarding ,nt, bs present. ext pulses present , no cyanosis . neuro: axo3 , nonfocal. Objective Data Active Medications Acetaminophen (Acetaminophen 325 Mg Tablet) 650 mg PO Q6H PRN PRN Reason: Pain, Mild (Pain Scale 1-3) Last Admin: 10/12/22 00:02 Dose: 650 mg Documented By: DOROTHY Enoxaparin Sodium (Enoxaparin Sodium 40 Mg/0.4 Ml Syringe) 40 mg SUBCUT Q24H [facility] Last Admin: 10/11/22 18:21 Dose: 40 mg Documented By: JENNIFER Guaifenesin (Guaifenesin 100 Mg/5 Ml Liquid) 5 ml PO Q6H PRN PRN Reason: Cough Ketorolac Tromethamine (Ketorolac Tromethamine 15 Mg/Ml Vial) 15 mg IVPUSH Q6H PRN PRN Reason: Pain, Moderate (Pain Scale 4-6 Last Admin: 10/12/22 12:43 Dose: 15 mg Documented By: SWATI Magnesium Hydroxide (Milk Of Magnesia 30 Ml Oral.Susp) 30 ml PO DAILY PRN PRN Reason: Constipation Multivitamins/Vitamin C (Multivitamin Tablet) 1 tab PO DAILY [facility] Last Admin: 10/12/22 10:17 Dose: 1 tab Documented By: SWATI Ondansetron HCl (Ondansetron Hcl 4 Mg/2 Ml Vial) 4 mg IVPUSH Q8H PRN PRN Reason: Nausea and Vomiting Sodium Chloride (0.9 % Sodium Chloride Flush 3 Ml Syringe) 3 ml IVFLUSH QSHIFT [facility] Last Admin: 10/12/22 08:55 Dose: 3 ml Documented By: SWATI Vitamin D (Cholecalciferol (Vitamin D3) 25 Mcg Tablet) 25 mcg PO DAILY [facility] Last Admin: 10/12/22 10:17 Dose: 25 mcg Documented By: SWATI Zolpidem Tartrate (Zolpidem Tartrate 5 Mg Tablet) 5 mg PO BEDTIME PRN PRN Reason: Insomnia Last Admin: 10/11/22 22:35 Dose: 5 mg Documented By: MADY Labs 10/12/22 05:52 10/12/22 05:52 Labs: Laboratory Results - last 24 hr 10/11/22 10/11/22 10/12/22 14:49 14:49 05:52 MCV 86.2 85.3 MCH 29.8 29.6 MCHC 34.5 34.7 RDW 13.2 13.0 Plt Count 187 180 MPV 9.4 9.3 L Immature Gran % (Auto) Cancelled Neut % (Auto) Cancelled Lymph % (Auto) Cancelled [place] % (Auto) Cancelled Eos % (Auto) Cancelled Baso % (Auto) Cancelled Lymph # (Auto) Cancelled [place] # (Auto) Cancelled Eos # (Auto) Cancelled Baso # (Auto) Cancelled Abs Immat Gran (auto) Cancelled Absolute Neuts (auto) Cancelled Absolute Nucleated RBC 0.000 0.000 Nucleated RBC % (auto) 0.0 0.0 Neutrophils % (Manual) 80 H Band Neutrophils % 11 H Lymphocytes % (Manual) 2 L Atypical Lymphs % (Man) 1 Monocytes % (Manual) 5 Metamyelocytes % 1 Abs Neuts (Manual) 19.2 H Lymphocytes # (Manual) 0.4 L Atyp Lymphs # (Manual) 0.2 Monocytes # (Manual) 1.1 Metamyelocytes # 0.2 Toxic Granulation PRESENT Toxic Vacuolation PRESENT Dohle Bodies PRESENT WBC Morphology Comment DYSMORPHIC Platelet Estimate NORMAL Large Platelets PRESENT Plt Morphology Comment NOTED RBC Morphology NOTED Microcytosis 1+ (5-14) Tear Drop Cells 2+ (3-5) [place] Cells 2+ (3-5) Anion Gap Estim Creat Clear Calc Estimated GFR Random Glucose Calcium Magnesium Total Bilirubin Direct Bilirubin AST ALT Alkaline Phosphatase Total Protein Albumin Hepatitis A IgM Ab Hep Bs Antigen Hep Bs Antibody Hep B Core Total Ab Hepatitis C Ab (EIA) Influenza Type A (PCR) NEGATIVE Influenza Type B (PCR) NEGATIVE RSV RNA Qual (PCR) NEGATIVE SARS-CoV-2 RNA (RT-PCR) NEGATIVE 10/12/22 10/12/22 05:52 05:52 MCV MCH MCHC RDW Plt Count MPV Immature Gran % (Auto) Neut % (Auto) Lymph % (Auto) [place] % (Auto) Eos % (Auto) Baso % (Auto) Lymph # (Auto) [place] # (Auto) Eos # (Auto) Baso # (Auto) Abs Immat Gran (auto) Absolute Neuts (auto) Absolute Nucleated RBC Nucleated RBC % (auto) Neutrophils % (Manual) Band Neutrophils % Lymphocytes % (Manual) Atypical Lymphs % (Man) Monocytes % (Manual) Metamyelocytes % Abs Neuts (Manual) Lymphocytes # (Manual) Atyp Lymphs # (Manual) Monocytes # (Manual) Metamyelocytes # Toxic Granulation Toxic Vacuolation Dohle Bodies WBC Morphology Comment Platelet Estimate Large Platelets Plt Morphology Comment RBC Morphology Microcytosis Tear Drop Cells [place] Cells Anion Gap 11 L Estim Creat Clear Calc 91.0 Estimated GFR > 60 Random Glucose 97 Calcium 7.9 L D Magnesium 2.3 Total Bilirubin 2.3 H Direct Bilirubin 1.6 H AST 27 ALT 47 H Alkaline Phosphatase 198 H Total Protein 4.6 L Albumin 2.3 L Hepatitis A IgM Ab Nonreactive Hep Bs Antigen Negative Hep Bs Antibody NONREACTIVE Hep B Core Total Ab Nonreactive Hepatitis C Ab (EIA) Nonreactive Influenza Type A (PCR) Influenza Type B (PCR) RSV RNA Qual (PCR) SARS-CoV-2 RNA (RT-PCR) Assessment and Plan (1) Severe sepsis: Status: Acute (2) Pneumonia: Status: Acute Plan 62 year old male with no chronic medical issues here with sob, cough, right pleurisy and right pneumonia, he meets severe? sepsis criteria fever at home (treated with tylenol), elevated WBC and elevated Bilirubin Severe Sepsis due to Community Acquired Pneumonia (CAP) Sepsis improving-tachycardia says moving, Strep and Legionella antigen pending Leukocytosis similar to yesterday, blood culture pending -Continue Ceftriaxone and Azithromycin Started 10/11,Incentive spiormetry,Robitusin for coughUrine Pleuritic chest pain d/t above Toraldol, and Tyelenol for pain Elevated LFTs (Transaminitis)--likely related to sepsis andalcohol use. Strongly advised for alcohol abstinence Hepatitis ABC screening negative -Follow LFTs improving Lovenox for DVT prophylaxis Full code regular diet Inpatient need:Sepsis due to Community Acquired Pneumonia (CAP)-need IV antibiotics until blood culture negative 48 hour. Time Spent With Patient Time: Total time managing care of this patient today ____ minutes. Quality Stroke Does the patient have a stroke diagnosis?: No VTE Prior VTE?: No VTE Risk Level:: Medical - moderate - high VTE Device Contraindication: Treatment Not Indicated VTE Drug Contraindication: N/A - Med Ordered
[2022-10-12 16:00] VITALS: BP 127/70; PULSE 93; RESP 16; TEMP 36.6; O2SAT 96
[2022-10-12] MEDS: cefTRIAXone sodium 1 GM in 0.9 % Sodium Chloride 50 ML IV (16:00)
[2022-10-12] MEDS: Azithromycin 500 MG TABLET PO (16:01)
[2022-10-12] MEDS: Enoxaparin Sodium 40 MG/0.4 ML SYRINGE SUBCUT (17:33)
[2022-10-12 19:32] VITALS: BP 141/72; PULSE 91; RESP 18; TEMP 36.1; O2SAT 93
[2022-10-12] MEDS: guaiFENesin 100 MG/5 ML LIQUID PO (19:39)
[2022-10-13] VITALS: BP 138/74; PULSE 82; RESP 17; TEMP 36.3; O2SAT 96
[2022-10-13] MEDS: Zolpidem Tartrate 5 MG TABLET PO (00:04)
[2022-10-13] MEDS: Ketorolac Tromethamine 15 MG/ML VIAL IVPUSH ×2 (06:14→22:12)
[2022-10-13 06:18] LABS: Hematocrit 38.7 % (42.0-52.0); Hemoglobin 13.4 g/dl (14.0-18.0); Mean Corpuscular HGB Conc 34.6 g/dl (31.0-36.0); Mean Corpuscular Hemoglobin 29.6 pg (27.0-33.0); Mean Corpuscular Volume 85.6 fL (80.0-98.0); Mean Platelet Volume 9.5 fL (9.4-12.4); Platelet Count 207 X10*3/uL (160-400); Red Blood Count 4.52 X10*6/uL (4.60-5.80); Red Cell Distribution Width 13.2 % (11.0-16.0); White Blood Count 23.1 X10*3/uL (4.8-10.8)
[2022-10-13 06:55] LABS: Alanine Aminotransferase 37 U/L (0-40); Albumin Level 2.2 g/dL (3.5-5.0); Alkaline Phosphatase 208 U/L (39-117); Anion Gap 13 (12-20); Aspartate Amino Transferase 25 U/L (5-37); Bilirubin Direct 0.6 mg/dL (0.0-0.5); Bilirubin Total 1.2 mg/dL (0.0-1.0); Blood Urea Nitrogen 28 mg/dL (9-16); Calcium 7.8 mg/dL (8.4-10.2); Carbon Dioxide 26 mmol/L (22-29); Chloride 102 mmol/L (96-108); Estimated Glomerular Filt Rate > 60; Glucose Random 91 mg/dL (60-115); Potassium 3.8 mmol/L (3.3-5.1); Sodium 137 mmol/L (135-145); Total Protein 4.5 g/dL (6.5-8.0)
[2022-10-13] MEDS: Multivitamin TABLET 1 TAB PO (07:41)
[2022-10-13] MEDS: Cholecalciferol (Vitamin D3) 25 MCG TABLET PO (07:41)
[2022-10-13] MEDS: 0.9 % Sodium Chloride Flush 3 ML SYRINGE IVFLUSH ×3 (07:41→20:01)
[2022-10-13 07:49] VITALS: BP 123/83; PULSE 65; RESP 18; TEMP 36.9; O2SAT 96
--- NOTE | 2022-10-13 13:14 | P.PNIM_ITS ---
Subjective Subjective Date of Service: 10/13/22 Interval History: Severe Sepsis due to Community Acquired Pneumonia Review of Systems sob somewhat imporvin no fevers Physical Exam Vital Signs: Vital Signs: Last Vital Signs Temp 98.4 F 10/13/22 07:49 Pulse 65 10/13/22 07:49 Resp 18 10/13/22 07:49 BP 123/83 10/13/22 07:49 Pulse Ox 96 10/13/22 07:49 O2 Del Method Room Air 10/13/22 07:49 BMI result Body Mass Index 23.5 Appearance: Alert.? Oriented X3.? sob. cvs: rrr, [id number]. res: air entry diminshed ,right sided base -few cracles , no wheezin abd: no rebound or guarding ,nt, bs present. ext pulses present , no cyanosis . neuro: axo3 , nonfocal. Objective Data Active Medications Acetaminophen (Acetaminophen 325 Mg Tablet) 650 mg PO Q6H PRN PRN Reason: Pain, Mild (Pain Scale 1-3) Last Admin: 10/12/22 00:02 Dose: 650 mg Documented By: DOROTHY Azithromycin (Azithromycin 500 Mg Tablet) 500 mg PO Q24H [facility] Last Admin: 10/12/22 16:01 Dose: 500 mg Documented By: MARIA ESTHER Enoxaparin Sodium (Enoxaparin Sodium 40 Mg/0.4 Ml Syringe) 40 mg SUBCUT Q24H [facility] Last Admin: 10/12/22 17:33 Dose: 40 mg Documented By: MARIA ESTHER Guaifenesin (Guaifenesin 100 Mg/5 Ml Liquid) 5 ml PO Q6H PRN PRN Reason: Cough Last Admin: 10/12/22 19:39 Dose: 5 ml Documented By: MARIA ESTHER Ceftriaxone Sodium 1 gm/ (Sodium Chloride) 50 mls @ 100 mls/hr IV Q24H [facility] Last Infusion: 10/12/22 17:22 Dose: 0 mls/hr Documented By: MARIA ESTHER Ketorolac Tromethamine (Ketorolac Tromethamine 15 Mg/Ml Vial) 15 mg IVPUSH Q6H PRN PRN Reason: Pain, Moderate (Pain Scale 4-6 Last Admin: 10/13/22 06:14 Dose: 15 mg Documented By: MAIKEL Magnesium Hydroxide (Milk Of Magnesia 30 Ml Oral.Susp) 30 ml PO DAILY PRN PRN Reason: Constipation Multivitamins/Vitamin C (Multivitamin Tablet) 1 tab PO DAILY [facility] Last Admin: 10/13/22 07:41 Dose: 1 tab Documented By: SMITA Ondansetron HCl (Ondansetron Hcl 4 Mg/2 Ml Vial) 4 mg IVPUSH Q8H PRN PRN Reason: Nausea and Vomiting Sodium Chloride (0.9 % Sodium Chloride Flush 3 Ml Syringe) 3 ml IVFLUSH QSHIFT [facility] Last Admin: 10/13/22 07:41 Dose: 3 ml Documented By: SMITA Vitamin D (Cholecalciferol (Vitamin D3) 25 Mcg Tablet) 25 mcg PO DAILY [facility] Last Admin: 10/13/22 07:41 Dose: 25 mcg Documented By: SMITA Zolpidem Tartrate (Zolpidem Tartrate 5 Mg Tablet) 5 mg PO BEDTIME PRN PRN Reason: Insomnia Last Admin: 10/13/22 00:04 Dose: 5 mg Documented By: MAIKEL Labs 10/13/22 05:49 10/13/22 05:49 Labs: Laboratory Results - last 24 hr 10/11/22 10/13/22 10/13/22 14:49 05:49 05:49 MCV 85.6 MCH 29.6 MCHC 34.6 RDW 13.2 Plt Count 207 MPV 9.5 Absolute Nucleated RBC 0.000 Nucleated RBC % (auto) 0.0 Smear Path Review Anion Gap 13 Estim Creat Clear Calc 90.0 Estimated GFR > 60 Random Glucose 91 Calcium 7.8 L Total Bilirubin 1.2 H Direct Bilirubin 0.6 H AST 25 ALT 37 Alkaline Phosphatase 208 H Total Protein 4.5 L Albumin 2.2 L Microbiology Microbiology Results: Microbiology 10/11/22 14:49 Blood Culture - Preliminary Blood - Venous No growth after 24 hours. 10/11/22 14:49 Blood Culture - Preliminary Blood - Venous No growth after 24 hours. Assessment and Plan (1) Severe sepsis: Status: Acute (2) Pneumonia: Status: Acute Plan 62 year old male with no chronic medical issues here with sob, cough, right pleurisy and right pneumonia, he meets severe? sepsis criteria fever at home (treated with tylenol), elevated WBC and elevated Bilirubin Severe Sepsis due to Community Acquired Pneumonia (CAP) Sepsis improving-tachycardia says? moving, Strep and Legionella antigen pending Leukocytosis similar to yesterday, blood culture @24hrs -Continue Ceftriaxone and Azithromycin Started 10/11,Incentive spiormetry,Robitusin for coughUrine Pleuritic chest pain d/t above Toraldol, and Tyelenol for pain Elevated LFTs (Transaminitis)--likely related to sepsis andalcohol use. Strongly advised for alcohol abstinence Hepatitis ABC screening negative -Follow LFTs improving Lovenox for DVT prophylaxis Full code regular diet Inpatient need:Sepsis due to Community Acquired Pneumonia (CAP)-need IV antibiotics until blood culture? negative 48 hour. Time Spent With Patient Time: Total time managing care of this patient today ____ minutes. Quality Stroke Does the patient have a stroke diagnosis?: No VTE Prior VTE?: No VTE Risk Level:: Medical - moderate - high VTE Device Contraindication: Treatment Not Indicated VTE Drug Contraindication: N/A - Med Ordered
[2022-10-13 15:54] VITALS: BP 133/65; PULSE 85; RESP 16; TEMP 36.1; O2SAT 94
[2022-10-13] MEDS: cefTRIAXone sodium 1 GM in 0.9 % Sodium Chloride 50 ML IV (16:16)
[2022-10-13] MEDS: Azithromycin 500 MG TABLET PO (16:16)
[2022-10-13] MEDS: Enoxaparin Sodium 40 MG/0.4 ML SYRINGE SUBCUT (16:55)
[2022-10-13 19:43] VITALS: BP 141/61; PULSE 80; RESP 14; TEMP 36.4; O2SAT 94
[2022-10-13] MEDS: guaiFENesin 100 MG/5 ML LIQUID PO (22:16)
[2022-10-13 23:29] VITALS: BP 122/66; PULSE 84; RESP 16; TEMP 36.6; O2SAT 94
[2022-10-14 06:43] LABS: Hematocrit 36.9 % (42.0-52.0); Hemoglobin 12.8 g/dl (14.0-18.0); Mean Corpuscular HGB Conc 34.7 g/dl (31.0-36.0); Mean Corpuscular Volume 86.4 fL (80.0-98.0); Mean Platelet Volume 9.3 fL (9.4-12.4); Platelet Count 230 X10*3/uL (160-400); Red Blood Count 4.27 X10*6/uL (4.60-5.80); Red Cell Distribution Width 13.6 % (11.0-16.0); White Blood Count 19.1 X10*3/uL (4.8-10.8)
[2022-10-14 07:34] VITALS: BP 155/78; PULSE 71; RESP 16; TEMP 36.8; O2SAT 93
[2022-10-14] MEDS: Cholecalciferol (Vitamin D3) 25 MCG TABLET PO (08:32)
[2022-10-14] MEDS: 0.9 % Sodium Chloride Flush 3 ML SYRINGE IVFLUSH ×2 (08:32→17:40)
[2022-10-14] MEDS: Multivitamin TABLET 1 TAB PO (08:32)
[2022-10-14] MEDS: Ketorolac Tromethamine 15 MG/ML VIAL IVPUSH ×2 (11:36→22:55)
--- NOTE | 2022-10-14 12:17 | P.CDIM_ITS ---
PROVIDER RESPONSE TEXT: To clarify, the appropriate diagnosis supported by the clinical indicators: Diagnosis was present on admission and is now resolved QUERY TEXT: PHYSICIAN'S DOCUMENTATION REQUEST Date of Query: 10/14/2022 10:32 AM EDT Patient Name: Bob Palomares Admit Date: 10/11/2022 Dear Ashli Elliott, A review of the medical record indicates additional documentation may be needed. Please review below and update the documentation accordingly. Clinical Indicators: There is mention of severe sepsis without mention of organ dysfunction or any diagnosis due to severe sepsis. The diagnosis of Severe Sepsis was documented on 10/13/22. Please clarify the following: Diagnosis was present on admission and is now resolved Diagnosis was present on admission and is still being monitored, evaluated, or treated Diagnosis was ruled out Diagnosis is still a likely, suspected, probable diagnosis Other (explain) Clinically unable to determine (explain) Thank you, Laura Higgins RN Use of terms such as suspected, likely, concern for, or probable (associated with a specific diagnosi s that is being evaluated, monitored, or treated as if it exists) are acceptable and can be coded in the inpatient se tting, when documented at the time of discharge. Please use your independent medical judgment in providing your response. THIS QUERY IS PART OF THE PERMANENT MEDICAL RECORD
--- NOTE | 2022-10-14 13:10 | HO.PM.IMPN ---
Subjective Subjective Date of Service: 10/14/22 Interval History: Severe Sepsis due to Community Acquired Pneumonia Review of Systems sob seems similar to yesterday,has less cough no fevers Physical Exam Vital Signs: Vital Signs: Last Vital Signs Temp 98.3 F 10/14/22 07:34 Pulse 71 10/14/22 07:34 Resp 16 10/14/22 07:34 BP 155/78 H 10/14/22 07:34 Pulse Ox 93 10/14/22 07:34 O2 Del Method Room Air 10/14/22 07:34 BMI result Body Mass Index 23.5 Appearance: Alert.? Oriented X3.? sob. cvs: rrr, [id number]. res: air entry diminshed ,right sided base -few cracles , no wheezin abd: no rebound or guarding ,nt, bs present. ext pulses present , no cyanosis . neuro: axo3 , nonfocal. Objective Data Active Medications Acetaminophen (Acetaminophen 325 Mg Tablet) 650 mg PO Q6H PRN PRN Reason: Pain, Mild (Pain Scale 1-3) Last Admin: 10/12/22 00:02 Dose: 650 mg Documented By: DOROTHY Azithromycin (Azithromycin 500 Mg Tablet) 500 mg PO Q24H [facility] Last Admin: 10/13/22 16:16 Dose: 500 mg Documented By: SMITA Enoxaparin Sodium (Enoxaparin Sodium 40 Mg/0.4 Ml Syringe) 40 mg SUBCUT Q24H [facility] Last Admin: 10/13/22 16:55 Dose: 40 mg Documented By: SMITA Guaifenesin (Guaifenesin 100 Mg/5 Ml Liquid) 5 ml PO Q6H PRN PRN Reason: Cough Last Admin: 10/13/22 22:16 Dose: 5 ml Documented By: SHARMIN Ceftriaxone Sodium 1 gm/ (Sodium Chloride) 50 mls @ 100 mls/hr IV Q24H [facility] Last Infusion: 10/13/22 16:58 Dose: 0 mls/hr Documented By: SMITA Ketorolac Tromethamine (Ketorolac Tromethamine 15 Mg/Ml Vial) 15 mg IVPUSH Q6H PRN PRN Reason: Pain, Moderate (Pain Scale 4-6 Last Admin: 10/14/22 11:36 Dose: 15 mg Documented By: KENISHA Magnesium Hydroxide (Milk Of Magnesia 30 Ml Oral.Susp) 30 ml PO DAILY PRN PRN Reason: Constipation Multivitamins/Vitamin C (Multivitamin Tablet) 1 tab PO DAILY [facility] Last Admin: 10/14/22 08:32 Dose: 1 tab Documented By: KENISHA Ondansetron HCl (Ondansetron Hcl 4 Mg/2 Ml Vial) 4 mg IVPUSH Q8H PRN PRN Reason: Nausea and Vomiting Sodium Chloride (0.9 % Sodium Chloride Flush 3 Ml Syringe) 3 ml IVFLUSH QSHIFT [facility] Last Admin: 10/14/22 08:32 Dose: 3 ml Documented By: KENISHA Vitamin D (Cholecalciferol (Vitamin D3) 25 Mcg Tablet) 25 mcg PO DAILY [facility] Last Admin: 10/14/22 08:32 Dose: 25 mcg Documented By: KENISHA Zolpidem Tartrate (Zolpidem Tartrate 5 Mg Tablet) 5 mg PO BEDTIME PRN PRN Reason: Insomnia Last Admin: 10/13/22 00:04 Dose: 5 mg Documented By: MAIKEL Labs 10/14/22 06:07 10/13/22 05:49 Labs: Laboratory Results - last 24 hr 10/14/22 06:07 MCV 86.4 MCH 30.0 MCHC 34.7 RDW 13.6 Plt Count 230 MPV 9.3 L Absolute Nucleated RBC 0.000 Nucleated RBC % (auto) 0.0 Microbiology Microbiology Results: Microbiology 10/11/22 14:49 Blood Culture - Preliminary Blood - Venous No growth after 48 hours. 10/11/22 14:49 Blood Culture - Preliminary Blood - Venous No growth after 48 hours. Assessment and Plan (1) Severe sepsis: Status: Acute (2) Pneumonia: Status: Acute Plan 62 year old male with no chronic medical issues here with sob, cough, right pleurisy and right pneumonia, he meets severe? sepsis criteria fever at home (treated with tylenol), elevated WBC and elevated Bilirubin Severe Sepsis(POA) due to Community Acquired Pneumonia (CAP) Sepsis improved Strep and Legionella antigen pending still sob with minimal excersion Leukocytosis similar to yesterday, blood culture @48hrs Continue Ceftriaxone and Azithromycin Started 10/11,Incentive spiormetry,Robitusin for coughUrine Pleuritic chest pain d/t above Toraldol, and Tyelenol for pain Elevated LFTs (Transaminitis)--likely related to sepsis andalcohol use. Strongly advised for alcohol abstinence Hepatitis ABC screening negative -Follow LFTs improving Lovenox for DVT prophylaxis Full code regular diet Inpatient need:Sepsis due to Community Acquired Pneumonia (CAP)-need IV antibiotics ,respiratory status not optimal yet. Time Spent With Patient Time: Total time managing care of this patient today ____ minutes. Quality Stroke Does the patient have a stroke diagnosis?: No VTE Prior VTE?: No VTE Risk Level:: Medical - moderate - high VTE Device Contraindication: Treatment Not Indicated VTE Drug Contraindication: N/A - Med Ordered
[2022-10-14] MEDS: cefTRIAXone sodium 1 GM in 0.9 % Sodium Chloride 50 ML IV (14:44)
[2022-10-14] MEDS: Azithromycin 500 MG TABLET PO (14:44)
[2022-10-14 15:53] VITALS: BP 140/83; PULSE 79; RESP 16; TEMP 36.4; O2SAT 95
--- NOTE | 2022-10-14 16:17 | MHC.CM.PN ---
PER PHYSICIAN ROUNDS, PATIENT STILL NOT AT OPTIMAL RESPIRATORY STATUS. \NO PLAN FOR DC TODAY
[2022-10-14] MEDS: Enoxaparin Sodium 40 MG/0.4 ML SYRINGE SUBCUT (17:39)
[2022-10-14 19:35] VITALS: BP 139/70; PULSE 80; RESP 18; TEMP 37.1; O2SAT 94
[2022-10-14] MEDS: guaiFENesin 100 MG/5 ML LIQUID PO (22:55)
[2022-10-14 23:28] VITALS: BP 134/75; PULSE 81; RESP 18; TEMP 36.9; O2SAT 94
[2022-10-15 07:43] VITALS: BP 129/65; PULSE 73; RESP 16; TEMP 36.6; O2SAT 94
[2022-10-15] MEDS: Multivitamin TABLET 1 TAB PO (08:18)
[2022-10-15] MEDS: Cholecalciferol (Vitamin D3) 25 MCG TABLET PO (08:18)
[2022-10-15] MEDS: 0.9 % Sodium Chloride Flush 3 ML SYRINGE IVFLUSH (08:19)
--- NOTE | 2022-10-15 11:13 | PM.DS ---
DS: Providers Provider Date of Service: 10/15/22 Date of admission: 10/11/22 16:28 Date of discharge: 10/15/22 Primary care physician: Jose Purdy MD DS: Diagnosis Discharge Diagnosis (1) Severe sepsis: Status: Acute (2) Pneumonia: Status: Acute (3) Elevated liver function tests: Status: Acute DS: Summary Hospital Course Hospital Course: 62 year old male with no snficiant PMHx ricardo with cough, shortness, fever and right sided pleurisy. He symptoms started started nearly 5 days ago with fever and chills, he recored fever of up 102 and has been taking tylenol? for the pain but the non-productive cough and shortness has persisted, he has been able to sleep. He called PCP but could not get a visit and therefore went to an urgent care where he was diagnosed with pneumnia and refered to the ED. Work releaved stable vitals, no fever, WBC is 21K. Flu/RSV/Sars-cov 19 negative. Started on Ceftriaxone and Azithromycin. Hospital course: Patient was admitted with shortness of breath and cough and some right-sided pleurisy: Found to have a elevated WBC count, mild elevation in LFTs, chest imaging also showed pneumonia , patient was admitted with severe sepsis secondary to pneumonia: Patient was started on IV antibiotics, blood cultures sent, LFTs monitored. Patient seems to be asymptomatic now, leukocytosis trending down , blood cultures negative at 48 hour, No fever, strep and Legionella antigen pending. Patient will go home with p.o. antibiotics-please complete the course of p.o. antibiotics for 7 days. LFTs elevation: Possible likely due to alcohol use, LFTs are improving significantly, hepatitis A,B,C screen negative. Monitor LFTs outpatient with PCP. Patient antibiotic was switched to p.o., patient needs to complete the course of antibiotic, please repeat chest imaging in 3-4 weeks to see resolution of pneumonia. plan: complete the course of p.o. antibiotics(ceftin/azithromycin) for 7 days. LFTs elevation: Possible likely due to alcohol use, LFTs are improving significantly, hepatitis A,B,C screen negative. Above management discussed with the patient in detail length the understand and in agreement with the above plan, time spent 50 minute. Time Spent with Patient Time attestation: Total time managing care of this patient today ____ minutes. Discharge coordination time: Greater than 30 minutes Quality: Safe Use of Opioids Does Pt have an Active Cancer Diagnosis on the Problem List?: No Quality: Stroke Does the patient have a stroke diagnosis?: No Physical Exam Vital Signs: Vital Signs: Last Vital Signs Temp 97.9 F 10/15/22 07:43 Pulse 73 10/15/22 07:43 Resp 16 10/15/22 07:43 BP 129/65 10/15/22 07:43 Pulse Ox 94 10/15/22 07:43 O2 Del Method Room Air 10/15/22 07:43 BMI result Body Mass Index 23.5 Appearance: Alert.? Oriented X3.? cvs: rrr, [id number]. res: air entry fair, no rales or wheezing abd: no rebound or guarding ,nt, bs present. ext pulses present , no cyanosis . neuro: axo3 , nonfocal. DS: Data Data Completed and Pending Labs on day of discharge: Preliminary micro results at discharge 10/11/22 14:49 Blood Culture - Preliminary Blood - Venous No growth after 48 hours. 10/11/22 14:49 Blood Culture - Preliminary Blood - Venous No growth after 48 hours. Imaging Chest x-ray: Radiologist's impression: ITS Impressions Chest X-Ray 10/11/22 15:37 IMPRESSION: Patchy consolidation right lower lobe and lateral segment right middle lobe. There is minimal opacity right upper lobe. Discharge Plan Discharge Anticipated Discharge Date/Time: 10/15/22 11:03 Patient Disposition: Home, Self-Care Discharge Diagnosis: Severe sepsis secondary to pneumonia, elevated LFTs. Referrals: Jose Purdy MD [Primary Care Provider] - 1 Week Discharge Medications: New cefuroxime axetil 500 mg tablet 500 mg PO BID Qty: 14 0RF azithromycin 500 mg tablet 500 mg PO DAILY 5 Days Qty: 5 0RF Continued multivitamin Tablet 1 tab PO DAILY cholecalciferol (vitamin D3) 25 mcg (1,000 unit) Tablet 25 mcg PO DAILY Discharge Orders: Discharge Order (Routine); Ordered 10/15/22 Ordered By: Ashli Elliott Diet: Advance to usual diet Activity on Discharge: As tolerated Stand Alone Forms: Patient Portal Discharge page Care Plan Goals: Patient was admitted with shortness of breath and cough and some right-sided pleurisy: Found to have a elevated WBC count, mild elevation in LFTs, chest imaging also showed pneumonia , patient was admitted with severe sepsis secondary to pneumonia: Patient was started on IV antibiotics, blood cultures sent, LFTs monitored. Patient seems to be asymptomatic now, leukocytosis trending down , blood cultures negative at 48 hour, No fever, strep and Legionella antigen pending. Patient will go home with p.o. antibiotics-please complete the course of p.o. antibiotics for 7 days. LFTs elevation: Possible likely due to alcohol use, LFTs are improving significantly, hepatitis A,B,C screen negative. Monitor LFTs outpatient with PCP. Patient antibiotic was switched to p.o., patient needs to complete the course of antibiotic, please repeat chest imaging in 3-4 weeks to see resolution of pneumonia. Above management discussed with the patient in detail length the understand and in agreement with the above plan, time spent 50 minute. Health Concerns: As above. Plan of Treatment: As above. Assessment: as above. Patient Instructions: Pneumonia (DC)
[2022-10-15] MEDS: Azithromycin 500 MG TABLET PO (11:45)
--- NOTE | 2022-10-16 14:51 | MHC.CM.PN ---
PT DISCHARGED ON 10/15, HOME WITH NO SERVICES FAMILY PROVIDED TRANSPORT
[2022-10-19 04:48] LABS: Legionella Ag Urine Not Detected (Not Detected)
[2022-10-20 16:39] LABS: Strep Pneumo Ag urine Detected (Not Detected)
== END 2022-10-15 12:11 | disposition home or self-care (01) | DRG 720 ==
LOC: HO.ED 16:23 → HO.EDOVER 16:38 → HO.S3 19:03
PROVIDERS: Physician Assistant; Admitting Provider Internal Medicine; Emergency Provider Emergency Medicine; PCP Family Medicine; Visit Provider Internal Medicine
DX: A41.9 Sepsis, unspecified organism (principal); J18.9 Pneumonia, unspecified organism; R65.20 Severe sepsis without septic shock; F10.90 Alcohol use, unspecified, uncomplicated; Z20.822 Contact with and (suspected) exposure to COVID-19; Z79.899 Other long term (current) drug therapy
CPT/HCPCS: 0241U; 36415; 71046; 80048; 80076; 83605; 83735; 83880; 84484; 85007; 85025; 85027; 86704; 86706; 86709; 86803; 87040; 87340; 87449; 87899; 93005; 99285; J0456; J0696; J1650; J1885